=== PATIENT | female | born 1990 | race Caucasian/White ===

== ENCOUNTER → 2017-02-02 | Outpatient (CLI) | payer OTHER | LOC: COL.RAD 13:48 | DX: R55 Syncope and collapse (principal); G43.109 Migraine with aura, not intractable, without status migrainosus; J34.1 Cyst and mucocele of nose and nasal sinus | CPT/HCPCS: A9585 ==

== ENCOUNTER → 2017-02-16 | Outpatient (CLI) | payer OTHER | LOC: COL.CARD 13:00 | DX: R55 Syncope and collapse (principal); G43.109 Migraine with aura, not intractable, without status migrainosus ==